=== PATIENT | male | born 1950 | race Caucasian/White ===

== ENCOUNTER → 2018-04-27 10:05 | Outpatient (CLI) | payer MEDICARE, OTHER, SELFPAY ==
[2018-04-27 10:39] LABS: Add Manual Diff / Slide Review NO; Basophils Percent Auto 0.8 % (0-2); Eosinophils Percent Auto 10.4 % (2-4); Hematocrit 46.8 % (41-53); Hemoglobin 16.1 g/dL (13.5-17.5); Lymphocytes Percent Auto 16.3 % (25-40); Mean Corpuscular HGB Conc 34.3 % (30-36); Mean Corpuscular Hemoglobin 31.3 PG (26-34); Mean Corpuscular Volume 91.2 fL (80-100); Monocytes Percent Auto 10.1 % (3-14); Neutrophils Absolute Auto 5000 /uL (3000-5900); Neutrophils Percent Auto 62.4 % (50-75); Platelet Count 177 X10^3/uL (150-400); Red Blood Cell Count 5.14 X10^6/uL (4.5-5.9); Red Cell Distribution Width 13.8 % (11.6-14.8)
[2018-04-27 10:48] LABS: Hemoglobin A1C% w Est Avg Glu 6.1 % (4.0-6.0)
[2018-04-27 11:37] LABS: Cholesterol 141 mg/dL (140-199); HDL Cholesterol 42 mg/dL (40-60); LDL Cholesterol Calculated 72 mg/dL (<100); Triglycerides 136 mg/dL (35-150)
[2018-04-27 15:19] LABS: Creatinine Urine Random 200.7 mg/dL
[2018-04-27 15:24] LABS: Microalbumi Creatinin Ratio Ur 10.9 ug/mg CR (<30); Microalbumin Urine Random 2.2 mg/dL (0-1.6)
== END ==
PROVIDERS: Family Provider Family Medicine; PCP Family Medicine; Visit Provider Family Medicine
DX: E78.5 Hyperlipidemia, unspecified (principal); I10 Essential (primary) hypertension; I25.10 Atherosclerotic heart disease of native coronary artery without angina pectoris
CPT/HCPCS: 36415; 80061; 82043; 82570; 83036; 85025

== ENCOUNTER → 2020-10-30 10:05 | Outpatient (CLI) | payer OTHER, SELFPAY ==
[2020-10-30 10:57] LABS: Add Manual Diff / Slide Review NO; Basophils Absolute Auto 100 /uL (0-100); Basophils Percent Auto 1.3 % (0-2); Eosinophils Absolute Auto 600 /uL (0-450); Eosinophils Percent Auto 7.6 % (2-4); Hematocrit 44.6 % (41-53); Hemoglobin 15.1 g/dL (13.5-17.5); Lymphocytes Absolute Auto 1200 /uL (1100-4500); Lymphocytes Percent Auto 16.8 % (25-40); Mean Corpuscular HGB Conc 33.9 % (30-36); Mean Corpuscular Volume 91.5 fL (80-100); Monocytes Absolute Auto 600 /uL (0-900); Monocytes Percent Auto 8.5 % (3-14); Neutrophils Absolute Auto 4900 /uL (1500-7000); Neutrophils Percent Auto 65.8 % (50-75); Platelet Count 174 X10^3/uL (150-400); Red Blood Cell Count 4.88 X10^6/uL (4.5-5.9); Red Cell Distribution Width 13.4 % (11.6-14.8); White Blood Cell Count 7.4 X10^3/uL (4.5-11.0)
[2020-10-30 11:03] LABS: Hemoglobin A1C% w Est Avg Glu 7.2 % (4.0-6.0)
[2020-10-30 11:06] LABS: Cholesterol 107 mg/dL (140-199); HDL Cholesterol 38 mg/dL (40-60); LDL Cholesterol Calculated 52 mg/dL (<100); Triglycerides 87 mg/dL (35-150)
[2020-10-30 11:06] LABS: BUN Creatinine Ratio 21.1 (6-22); Blood Urea Nitrogen 16 mg/dL (9-20); Calcium 9.4 mg/dL (8.4-10.2); Carbon Dioxide 26 mmol/L (22-32); Chloride 106 mmol/L (98-107); Estimated Glomerular Filt Rate > 60.0 mL/min (>60); Glucose 123 mg/dL (80-110); HEMOLYSIS < 15 (0-50); Potassium 4.2 mmol/L (3.4-5.1); Sodium 139 mmol/L (137-145)
[2020-10-30 11:16] LABS: Creatinine Urine Random 75.2 mg/dL
[2020-10-30 11:21] LABS: Microalbumi Creatinin Ratio Ur 10.6 ug/mg CR (<30); Microalbumin Urine Random 0.8 mg/dL (0-1.6)
[2020-10-30 11:37] LABS: Prostate Specific Antigen Scrn 5.76 ng/mL (0.1-4.0)
[2020-10-30 11:47] LABS: TSH w/ Reflex to FT4 3.42 uIU/mL (0.47-4.68)
== END ==
PROVIDERS: Internal Medicine Cardiovascular Disease; Family Provider Family Medicine; PCP Family Medicine; Referring Provider Family Medicine; Visit Provider Family Medicine
DX: I10 Essential (primary) hypertension (principal); Z12.5 Encounter for screening for malignant neoplasm of prostate; E08.40 Diabetes mellitus due to underlying condition with diabetic neuropathy, unspecified; E78.5 Hyperlipidemia, unspecified; I25.10 Atherosclerotic heart disease of native coronary artery without angina pectoris
CPT/HCPCS: 36415; 80048; 80061; 82043; 82570; 83036; 84443; 85025; G0103

== ENCOUNTER → 2021-05-10 09:25 | Outpatient (CLI) | payer OTHER, SELFPAY ==
[2021-05-10 10:35] LABS: Hemoglobin A1C% w Est Avg Glu 6.1 % (4.0-6.0)
[2021-05-10 10:36] LABS: BUN Creatinine Ratio 18.5 (6-22); Blood Urea Nitrogen 15 mg/dL (9-20); Calcium 9.7 mg/dL (8.4-10.2); Carbon Dioxide 28 mmol/L (22-32); Chloride 104 mmol/L (98-107); Estimated Glomerular Filt Rate > 60.0 mL/min (>60); Glucose 107 mg/dL (80-110); HEMOLYSIS < 15 (0-50); Potassium 4.2 mmol/L (3.4-5.1); Sodium 141 mmol/L (137-145)
== END ==
PROVIDERS: Family Provider Family Medicine; PCP Family Medicine; Referring Provider Family Medicine; Visit Provider Family Medicine
DX: E08.40 Diabetes mellitus due to underlying condition with diabetic neuropathy, unspecified (principal)
CPT/HCPCS: 36415; 80048; 83036

== ENCOUNTER → 2021-11-01 09:31 | Outpatient (CLI) | payer OTHER, SELFPAY ==
[2021-11-01 10:25] LABS: Add Manual Diff / Slide Review NO; Basophils Absolute Auto 100 /uL (0-100); Basophils Percent Auto 1.1 % (0-2); Eosinophils Absolute Auto 800 /uL (0-450); Eosinophils Percent Auto 8.7 % (2-4); Hematocrit 44.4 % (41-53); Hemoglobin 15.2 g/dL (13.5-17.5); Lymphocytes Absolute Auto 1500 /uL (1100-4500); Lymphocytes Percent Auto 16.9 % (25-40); Mean Corpuscular HGB Conc 34.1 % (30-36); Mean Corpuscular Hemoglobin 31.1 PG (26-34); Mean Corpuscular Volume 91.1 fL (80-100); Monocytes Absolute Auto 800 /uL (0-900); Monocytes Percent Auto 9.2 % (3-14); Neutrophils Absolute Auto 5700 /uL (1500-7000); Neutrophils Percent Auto 64.1 % (50-75); Platelet Count 175 X10^3/uL (150-400); Red Blood Cell Count 4.87 X10^6/uL (4.5-5.9); Red Cell Distribution Width 13.9 % (11.6-14.8); White Blood Cell Count 8.9 X10^3/uL (4.5-11.0)
[2021-11-01 10:39] LABS: Hemoglobin A1C% w Est Avg Glu 6.9 % (4.0-6.0)
[2021-11-01 11:19] LABS: Alanine Aminotransferase 41 IU/L (<50); Albumin 4.8 g/dL (3.5-5.0); Albumin Globulin Ratio 1.6 (1.0-2.8); Alkaline Phosphatase 65 U/L (38-126); Aspartate Aminotransferase 35 IU/L (17-59); BUN Creatinine Ratio 14.1 (6-22); Bilirubin Total 0.7 mg/dL (0.2-1.3); Blood Urea Nitrogen 13 mg/dL (9-20); Calcium 9.5 mg/dL (8.4-10.2); Carbon Dioxide 25 mmol/L (22-32); Chloride 104 mmol/L (98-107); Cholesterol 120 mg/dL (140-199); Estimated Glomerular Filt Rate > 60.0 mL/min (>60); Glucose 121 mg/dL (80-110); HDL Cholesterol 39 mg/dL (40-60); HEMOLYSIS < 15 (0-50); LDL Cholesterol Calculated 57 mg/dL (<100); Potassium 4.5 mmol/L (3.4-5.1); Sodium 140 mmol/L (137-145); Total Protein 7.8 g/dL (6.3-8.2); Triglycerides 120 mg/dL (35-150)
[2021-11-01 11:33] LABS: Creatinine Urine Random 64.9 mg/dL
[2021-11-01 11:37] LABS: Microalbumin Urine Random 1.3 mg/dL (0-1.6)
[2021-11-01 11:48] LABS: Prostate Specific Antigen Scrn 7.12 ng/mL (0.1-4.0)
[2021-11-01 11:58] LABS: TSH w/ Reflex to FT4 3.65 uIU/mL (0.47-4.68)
== END ==
PROVIDERS: Family Provider Family Medicine; PCP Family Medicine; Referring Provider Family Medicine; Visit Provider Family Medicine
DX: E11.9 Type 2 diabetes mellitus without complications (principal); Z12.5 Encounter for screening for malignant neoplasm of prostate; I10 Essential (primary) hypertension; E78.5 Hyperlipidemia, unspecified; I25.10 Atherosclerotic heart disease of native coronary artery without angina pectoris
CPT/HCPCS: 36415; 80053; 80061; 82043; 82570; 83036; 84443; 85025; G0103

== ENCOUNTER → 2022-02-01 09:32 | Outpatient (CLI) | payer OTHER, SELFPAY ==
--- NOTE | 2022-02-01 09:33 | DI.US.S_ITS ---
PROCEDURE: US SCROTUM INDICATIONS: ENLARGED, FIRM LEFT SCROTUM TECHNIQUE: Real-time scanning was performed of the scrotum and testicles, with image documentation. Color and pulse Doppler interrogation was performed of both testicles. COMPARISON: None. FINDINGS: Right: Testicle is normal in size at 5.2 x 2.6 x 3.5 cm, and homogenous in echotexture. Epididymis is normal in overall size and morphology. Small hydrocele. No varicoceles. Overlying scrotal skin is normal in thickness. Left: Testicle is normal in size at 5.1 x 3.1 x 3.3 cm, and homogeneous in echotexture. Epididymis is normal in overall size and morphology. Small hydrocele. No varicoceles. Overlying scrotal skin is normal in thickness. Doppler: Color and pulse Doppler demonstrate normal and symmetric arterial flow in both testicles. IMPRESSION: 1. Normal testicular ultrasound. No testicular mass. No findings to suggest testicular torsion. 2. Small hydroceles bilaterally. Dictated by: Ferny Rich M.D. on 02/01/2022 at 12:35 Approved by: Ferny Rich M.D. on 02/01/2022 at 12:45
== END ==
PROVIDERS: Family Provider Family Medicine; PCP Family Medicine; Referring Provider Specialist; Visit Provider Specialist
DX: R97.20 Elevated prostate specific antigen [PSA] (principal); N52.9 Male erectile dysfunction, unspecified; N43.3 Hydrocele, unspecified
CPT/HCPCS: 76870

== ENCOUNTER → 2022-02-28 12:43 | Outpatient (CLI) | payer OTHER, SELFPAY ==
--- NOTE | 2022-02-28 12:46 | DI.MRI.S_ITS ---
PROCEDURE: MR PELIS WO/W CON INDICATIONS: Elevated PSA TECHNIQUE: Coronal HASTE, axial T1 FSE with fat saturation, 3-plane nonbreath-hold T2 FSE. After the administration of contrast, dynamic axial, delayed axial and coronal VIBE or 2-D FLASH with fat saturation through the pelvis. Optional diffusion weighted imaging and ADC may be performed. COMPARISON: None. FINDINGS: Image quality: Diffusion weighted and dynamic contrast enhanced images are diagnostic. Prostate: Gland size is 6.0 x 5.1 x 5.9 cm; ellipsoid gland volume is 93.9 mL. Lesion size(s): Lesion 1: 2.1 cm in AP diameter. Lesion 2: 0.8 cm in oblique transverse diameter Lesion 3: 1.3 cm in AP diameter Lesion 4: Approximately 1.5 cm transversely. Lesion location(s) (sector): Lesion 1: Right posterior transition zone at the mid gland level Lesion 2: Left posteromedial peripheral zone at the gland base in AP diameter Lesion 3: Left anterior medial transition zone at the mid gland level. Lesion 4: Left posterior peripheral zone at the mid gland to base Lesion description: Lesion 1: Irregular, slightly heterogeneous lesion with irregular and indistinct margins which extends through the pseudo capsule. Lesion 2: Lenticular lesion with indistinct margins. Lesion 3: Irregular lesion with slightly spiculated, irregular margins. Lesion 4: Curvilinear region with indistinct margin. No definite extracapsular extension. T2 weighted imaging (T2WI) morphology score: Lesion 1: Three Lesion 2: Two Lesion 3: Four Lesion 4: Two Diffusion weighted imaging (DWI) morphology score: Lesion 1: Five Lesion 2: Three Lesion 3: Three Lesion 4: Three Dynamic contrast enhancement (DCE): Lesion 1: Absent Lesion 2: Absent Lesion 3: Absent Lesion 4: Absent Lesion PI-RADS score: Lesion 1: PI-RADS four Lesion 2: PI-RADS three Lesion 3: PI-RADS four Lesion 4: PI-RADS three Genitourinary system: Bladder wall thickness is normal. Distal ureters are non distended. Small bilateral scrotal hydroceles. Bowel and peritoneum: No pathologic free pelvic fluid. Inferior colon and small bowel loops are normal in caliber. Nodes and vessels: No pelvic or inguinal adenopathy by size criteria. Iliac vessels are normal in caliber. Soft tissues: Very small fat containing right inguinal hernia. Bones: Marrow demonstrates normal overall signal, without lesions to suggest metastases. IMPRESSION: 1. Index lesion in the right posterior transition zone with a PI-RADS score of four. 2. Three other smaller lesions as described with intermediate to increased probability of clinically significant cancer. 3. No adenopathy. Dictated by: Rosina Marcelino M.D. on 02/28/2022 at 21:11 Approved by: Rosina Marcelino M.D. on 02/28/2022 at 21:56
== END ==
PROVIDERS: Family Provider Family Medicine; PCP Family Medicine; Referring Provider Specialist; Visit Provider Specialist
DX: N42.9 Disorder of prostate, unspecified (principal); N52.9 Male erectile dysfunction, unspecified; R97.20 Elevated prostate specific antigen [PSA]
CPT/HCPCS: 72197; A9579

== ENCOUNTER → 2022-03-09 09:13 | Outpatient (CLI) | payer OTHER, SELFPAY ==
[2022-03-09 11:01] LABS: Prostate Specific Antigen 8.02 ng/mL (0.10-4.00)
== END ==
PROVIDERS: Family Provider Family Medicine; PCP Family Medicine; Referring Provider Specialist; Visit Provider Specialist
DX: R97.20 Elevated prostate specific antigen [PSA] (principal)
CPT/HCPCS: 36415; 84153

== ENCOUNTER → 2022-10-10 14:43 | Outpatient (CLI) | payer OTHER, SELFPAY ==
[2022-10-10 16:13] LABS: Prostate Specific Antigen 2.49 ng/mL (0.10-4.00)
== END ==
PROVIDERS: Family Provider Family Medicine; PCP Family Medicine; Referring Provider Specialist; Visit Provider Specialist
DX: N40.1 Benign prostatic hyperplasia with lower urinary tract symptoms (principal); N13.8 Other obstructive and reflux uropathy; R97.20 Elevated prostate specific antigen [PSA]
CPT/HCPCS: 36415; 84153

== ENCOUNTER → 2022-11-02 08:40 | Outpatient (CLI) | payer OTHER, SELFPAY ==
[2022-11-02 09:26] LABS: Add Manual Diff / Slide Review NO; Basophils Absolute Auto 100 /uL (0-100); Basophils Percent Auto 0.9 % (0-2); Eosinophils Absolute Auto 600 /uL (0-450); Hematocrit 42.2 % (41-53); Hemoglobin 14.3 g/dL (13.5-17.5); Lymphocytes Absolute Auto 1300 /uL (1100-4500); Lymphocytes Percent Auto 17.6 % (25-40); Mean Corpuscular Hemoglobin 30.5 PG (26-34); Mean Corpuscular Volume 89.7 fL (80-100); Monocytes Absolute Auto 700 /uL (0-900); Monocytes Percent Auto 9.6 % (3-14); Neutrophils Absolute Auto 4600 /uL (1500-7000); Neutrophils Percent Auto 63.9 % (50-75); Platelet Count 178 X10^3/uL (150-400); Red Cell Distribution Width 13.8 % (11.6-14.8); White Blood Cell Count 7.1 X10^3/uL (4.5-11.0)
[2022-11-02 09:36] LABS: Alanine Aminotransferase 42 IU/L (<50); Albumin 4.3 g/dL (3.5-5.0); Albumin Globulin Ratio 1.5 (1.0-2.8); Alkaline Phosphatase 70 U/L (38-126); Aspartate Aminotransferase 31 IU/L (17-59); BUN Creatinine Ratio 15.5 (6-22); Bilirubin Total 0.7 mg/dL (0.2-1.3); Blood Urea Nitrogen 13 mg/dL (9-20); Calcium 8.9 mg/dL (8.4-10.2); Carbon Dioxide 26 mmol/L (22-32); Chloride 103 mmol/L (98-107); Cholesterol 116 mg/dL (140-199); Estimated Glomerular Filt Rate > 60 mL/min (>60); Globulin 2.8 g/dL (1.7-4.1); Glucose 116 mg/dL (80-110); HDL Cholesterol 35 mg/dL (40-60); HEMOLYSIS < 15 (0-50); LDL Cholesterol Calculated 55 mg/dL (<100); Sodium 138 mmol/L (137-145); Total Protein 7.1 g/dL (6.3-8.2); Triglycerides 129 mg/dL (35-150)
[2022-11-02 09:56] LABS: Creatinine Urine Random 149.4 mg/dL
[2022-11-02 10:00] LABS: Microalbumi Creatinin Ratio Ur 8.7 ug/mg CR (<30); Microalbumin Urine Random 1.3 mg/dL (0-1.6)
[2022-11-02 10:13] LABS: TSH w/ Reflex to FT4 2.96 uIU/mL (0.47-4.68)
== END ==
PROVIDERS: Family Provider Family Medicine; PCP Family Medicine; Referring Provider Family Medicine; Visit Provider Family Medicine
DX: E11.9 Type 2 diabetes mellitus without complications (principal); I10 Essential (primary) hypertension; I25.10 Atherosclerotic heart disease of native coronary artery without angina pectoris
CPT/HCPCS: 36415; 80053; 80061; 82043; 82570; 83036; 84443; 85025

== ENCOUNTER → 2023-04-11 13:01 | Outpatient (CLI) | payer OTHER, SELFPAY ==
[2023-04-11 15:22] LABS: Prostate Specific Antigen 2.34 ng/mL (0.10-4.00)
== END ==
PROVIDERS: Family Provider Family Medicine; PCP Family Medicine; Referring Provider Specialist; Visit Provider Specialist
DX: R97.20 Elevated prostate specific antigen [PSA] (principal)
CPT/HCPCS: 36415; 84153

== ENCOUNTER → 2023-04-15 15:18 | Outpatient (CLI) | payer OTHER, SELFPAY | PROVIDERS: Family Provider Family Medicine; PCP Family Medicine; Visit Provider Specialist | DX: C61 Malignant neoplasm of prostate (principal); N13.8 Other obstructive and reflux uropathy; R97.20 Elevated prostate specific antigen [PSA]; R39.9 Unspecified symptoms and signs involving the genitourinary system; N52.9 Male erectile dysfunction, unspecified | CPT/HCPCS: 51798; 81002; 87086; 99214 ==

== ENCOUNTER → 2023-05-12 08:20 | Outpatient (CLI) | payer OTHER, SELFPAY ==
[2023-05-12 08:54] LABS: Hemoglobin A1C% w Est Avg Glu 6.6 % (4.0-6.0)
== END ==
PROVIDERS: Family Provider Family Medicine; PCP Family Medicine; Referring Provider Family Medicine; Visit Provider Family Medicine
DX: E11.9 Type 2 diabetes mellitus without complications (principal)
CPT/HCPCS: 36415; 83036

== ENCOUNTER → 2023-09-23 09:27 | Outpatient (CLI) | payer OTHER, SELFPAY ==
[2023-09-23 11:13] LABS: Add Manual Diff / Slide Review NO; Basophils Absolute Auto 100 /uL (0-100); Eosinophils Absolute Auto 800 /uL (0-450); Hematocrit 43.4 % (41-53); Hemoglobin 15.1 g/dL (13.5-17.5); Lymphocytes Absolute Auto 1400 /uL (1100-4500); Lymphocytes Percent Auto 16.6 % (25-40); Mean Corpuscular HGB Conc 34.9 % (30-36); Mean Corpuscular Hemoglobin 31.5 PG (26-34); Mean Corpuscular Volume 90.2 fL (80-100); Monocytes Absolute Auto 700 /uL (0-900); Monocytes Percent Auto 8.6 % (3-14); Neutrophils Absolute Auto 5600 /uL (1500-7000); Neutrophils Percent Auto 64.8 % (50-75); Platelet Count 185 X10^3/uL (150-400); Red Blood Cell Count 4.81 X10^6/uL (4.5-5.9); Red Cell Distribution Width 13.5 % (11.6-14.8); White Blood Cell Count 8.6 X10^3/uL (4.5-11.0)
[2023-09-23 11:28] LABS: Hemoglobin A1C% w Est Avg Glu 7.7 % (4.0-6.0)
[2023-09-23 12:36] LABS: Alanine Aminotransferase 61 IU/L (<50); Albumin 4.4 g/dL (3.5-5.0); Albumin Globulin Ratio 1.5 (1.0-2.8); Alkaline Phosphatase 70 U/L (38-126); Aspartate Aminotransferase 51 IU/L (17-59); BUN Creatinine Ratio 18.2 (6-22); Bilirubin Total 0.7 mg/dL (0.2-1.3); Blood Urea Nitrogen 14 mg/dL (9-20); Calcium 9.5 mg/dL (8.4-10.2); Carbon Dioxide 25 mmol/L (22-32); Chloride 103 mmol/L (98-107); Cholesterol 123 mg/dL (140-199); Estimated Glomerular Filt Rate > 60 mL/min (>60); Glucose 133 mg/dL (80-110); HDL Cholesterol 39 mg/dL (40-60); HEMOLYSIS < 15 (0-50); LDL Cholesterol Calculated 56 mg/dL (<100); Potassium 4.3 mmol/L (3.4-5.1); Sodium 137 mmol/L (137-145); Total Protein 7.4 g/dL (6.3-8.2); Triglycerides 142 mg/dL (35-150)
[2023-09-23 12:59] LABS: TSH w/ Reflex to FT4 3.09 uIU/mL (0.47-4.68)
[2023-09-23 13:05] LABS: Prostate Specific Antigen Scrn 2.38 ng/mL (0.1-4.0)
== END ==
LOC: LAB 09:28
PROVIDERS: Family Provider Family Medicine; PCP Family Medicine; Referring Provider Family Medicine; Visit Provider Family Medicine
DX: Z12.5 Encounter for screening for malignant neoplasm of prostate (principal); E11.9 Type 2 diabetes mellitus without complications; E78.5 Hyperlipidemia, unspecified; C61 Malignant neoplasm of prostate; I10 Essential (primary) hypertension
CPT/HCPCS: 36415; 80053; 80061; 83036; 84443; 85025; G0103

== ENCOUNTER → 2024-04-01 11:05 | Outpatient (CLI) | payer OTHER, SELFPAY ==
[2024-04-01 12:41] LABS: BUN Creatinine Ratio 17.1 (6-22); Blood Urea Nitrogen 14 mg/dL (9-20); Calcium 9.1 mg/dL (8.4-10.2); Carbon Dioxide 21 mmol/L (22-32); Chloride 106 mmol/L (98-107); Estimated Glomerular Filt Rate > 60 mL/min (>60); Glucose 111 mg/dL (80-110); HEMOLYSIS < 15 (0-50); Potassium 4.3 mmol/L (3.4-5.1); Sodium 137 mmol/L (137-145)
[2024-04-01 12:58] LABS: Hemoglobin A1C% w Est Avg Glu 6.3 % (4.0-6.0)
[2024-04-01 13:11] LABS: Prostate Specific Antigen 1.84 ng/mL (0.10-4.00)
== END ==
PROVIDERS: Family Provider Family Medicine; PCP Family Medicine; Referring Provider Specialist; Visit Provider Specialist
DX: E11.9 Type 2 diabetes mellitus without complications (principal); C61 Malignant neoplasm of prostate; R97.20 Elevated prostate specific antigen [PSA]
CPT/HCPCS: 36415; 80048; 83036; 84153

== ENCOUNTER → 2024-10-06 13:39 | Outpatient (CLI) | payer OTHER, SELFPAY ==
[2024-10-06 16:14] LABS: Prostate Specific Antigen 1.93 ng/mL (0.10-4.00)
== END ==
PROVIDERS: Family Provider Family Medicine; PCP Family Medicine; Referring Provider Urology; Visit Provider Urology
DX: R97.20 Elevated prostate specific antigen [PSA] (principal)
CPT/HCPCS: 36415; 84153

== ENCOUNTER → 2024-10-28 08:46 | Outpatient (CLI) | payer OTHER, SELFPAY ==
[2024-10-28 09:28] LABS: Hemoglobin A1C% w Est Avg Glu 5.9 % (4.0-6.0)
[2024-10-28 09:31] LABS: Alanine Aminotransferase 35 IU/L (<50); Albumin 4.5 g/dL (3.5-5.0); Albumin Globulin Ratio 1.9 (1.0-2.8); Alkaline Phosphatase 57 U/L (38-126); Aspartate Aminotransferase 33 IU/L (17-59); BUN Creatinine Ratio 17.1 (6-22); Bilirubin Total 0.6 mg/dL (0.2-1.3); Blood Urea Nitrogen 14 mg/dL (9-20); Calcium 9.6 mg/dL (8.4-10.2); Carbon Dioxide 23 mmol/L (22-32); Chloride 104 mmol/L (98-107); Cholesterol 119 mg/dL (140-199); Estimated Glomerular Filt Rate > 60 mL/min (>60); Globulin 2.4 g/dL (1.7-4.1); Glucose 113 mg/dL (80-110); HDL Cholesterol 41 mg/dL (40-60); HEMOLYSIS < 15 (0-50); LDL Cholesterol Calculated 50 mg/dL (<100); Potassium 4.5 mmol/L (3.4-5.1); Sodium 138 mmol/L (137-145); Total Protein 6.9 g/dL (6.3-8.2); Triglycerides 138 mg/dL (35-150)
[2024-10-28 09:32] LABS: Add Manual Diff / Slide Review NO; Basophils Absolute Auto 100 /uL (0-100); Basophils Percent Auto 0.7 % (0-2); Eosinophils Absolute Auto 700 /uL (0-450); Eosinophils Percent Auto 8.4 % (2-4); Hematocrit 43.8 % (41-53); Hemoglobin 14.6 g/dL (13.5-17.5); Lymphocytes Absolute Auto 1300 /uL (1100-4500); Lymphocytes Percent Auto 15.8 % (25-40); Mean Corpuscular HGB Conc 33.5 % (30-36); Mean Corpuscular Hemoglobin 31.4 PG (26-34); Mean Corpuscular Volume 93.8 fL (80-100); Monocytes Absolute Auto 700 /uL (0-900); Monocytes Percent Auto 8.7 % (3-14); Neutrophils Absolute Auto 5300 /uL (1500-7000); Neutrophils Percent Auto 66.4 % (50-75); Platelet Count 189 X10^3/uL (150-400); Red Blood Cell Count 4.66 X10^6/uL (4.5-5.9); Red Cell Distribution Width 13.1 % (11.6-14.8)
[2024-10-28 12:09] LABS: Creatinine Urine Random 85.37 mg/dL
[2024-10-28 12:13] LABS: Microalbumin Urine Random 0.7 mg/dL (0-1.6)
== END ==
LOC: LAB 08:47
PROVIDERS: Family Provider Family Medicine; PCP Family Medicine; Referring Provider Family Medicine; Visit Provider Family Medicine
DX: E11.9 Type 2 diabetes mellitus without complications (principal); N40.1 Benign prostatic hyperplasia with lower urinary tract symptoms; N13.8 Other obstructive and reflux uropathy; C61 Malignant neoplasm of prostate; I25.10 Atherosclerotic heart disease of native coronary artery without angina pectoris; E78.5 Hyperlipidemia, unspecified
CPT/HCPCS: 36415; 80053; 80061; 82043; 82570; 83036; 85025

== ENCOUNTER → 2025-01-24 10:27 | Outpatient (CLI) | payer OTHER, SELFPAY ==
--- NOTE | 2025-01-24 10:29 | DI.RAD.S_ITS ---
PROCEDURE: XR SHOULDER RT MIN 2V INDICATIONS: impaired mobility TECHNIQUE: Three views of the shoulder were acquired. COMPARISON: None. FINDINGS: Bones: There are no osseous abnormalities. Acromioclavicular and glenohumeral joints: Mild degeneration both joints. Soft tissues: A 1.5 cm calcification seen in the medial soft tissues adjacent to the proximal humeral diaphysis. Calcifications seen in the expected location of the distal rotator cuff IMPRESSION: Calcific tendinitis rotator cuff. Degeneration Dictated by: Arsen Miles M.D. on 01/25/2025 at 12:01 Approved by: Arsen Miles M.D. on 01/25/2025 at 12:03
== END ==
PROVIDERS: PCP Family Medicine; Referring Provider Family Medicine; Visit Provider Family Medicine
DX: M75.01 Adhesive capsulitis of right shoulder (principal); M19.011 Primary osteoarthritis, right shoulder; M75.31 Calcific tendinitis of right shoulder
CPT/HCPCS: 73030

== ENCOUNTER → 2025-04-27 09:55 | Outpatient (CLI) | payer OTHER, SELFPAY ==
[2025-04-27 11:20] LABS: Hemoglobin A1C% w Est Avg Glu 6.4 % (4.0-6.0)
[2025-04-27 11:25] LABS: Blood Urea Nitrogen 11 mg/dL (9-20); Calcium 9.4 mg/dL (8.4-10.2); Carbon Dioxide 25 mmol/L (22-32); Chloride 102 mmol/L (98-107); Estimated Glomerular Filt Rate > 60 mL/min (>60); Glucose 111 mg/dL (70-99); HEMOLYSIS < 15 (0-50); Potassium 4.5 mmol/L (3.4-5.1); Sodium 138 mmol/L (137-145)
== END ==
PROVIDERS: PCP Family Medicine; Referring Provider Family Medicine; Visit Provider Family Medicine
DX: E11.9 Type 2 diabetes mellitus without complications (principal)
CPT/HCPCS: 36415; 80048; 83036

== ENCOUNTER → 2025-05-13 11:05 | Outpatient (CLI) | payer OTHER, SELFPAY ==
[2025-05-13 12:59] LABS: Prostate Specific Antigen 2.11 ng/mL (0.10-4.00)
== END ==
PROVIDERS: PCP Family Medicine; Referring Provider Urology; Visit Provider Urology
DX: R97.20 Elevated prostate specific antigen [PSA] (principal); N13.8 Other obstructive and reflux uropathy; N40.1 Benign prostatic hyperplasia with lower urinary tract symptoms
CPT/HCPCS: 36415; 84153